=== PATIENT | male | born 2000 | race African-American/Black ===

== ENCOUNTER 2018-02-03 09:28 | Emergency (ER) | payer SELFPAY ==
[~2018-02-03] VITALS: Ht 170.2 cm; Wt 88.6 kg
[2018-02-03 10:17] VITALS: BP 119/59; PULSE 75; TEMP 98.9
== END 2018-02-03 10:18 | disposition home or self-care (01) ==
LOC: COL.ER 09:28
DX: S61.214A Laceration without foreign body of right ring finger without damage to nail, initial encounter (principal); W26.0XXA Contact with knife, initial encounter; Z88.0 Allergy status to penicillin